=== PATIENT | male | born 1975 | race Caucasian/White ===

== ENCOUNTER 2019-07-24 15:47 | Emergency (ER) | payer OTHER ==
[2019-07-24 15:56] VITALS: BP 140/87; PULSE 74; TEMP 98.3; BMI 26.6
[2019-07-24] MEDS ORDERED: CLINDAMYCIN HCL 300 MG CAPSULE PO ONE (16:24)
[2019-07-24] MEDS ORDERED: CLINDAMYCIN HCL 150 MG CAPSULE (FP) ONE (16:26)
--- NOTE | 2019-07-24 16:50 | PDOC ---
Documentation entered by Oswaldo Posadas SCRIBE, acting as scribe for Aaron Yan MD. Aaron Yan MD: This documentation has been prepared by the [place] ascencio Elijah, SCRIBE, under my direction and personally reviewed by me in its entirety. I confirm that the documentation accurately reflects all work, treatment, procedures, and medical decision making performed by me. History of Present Illness - General Chief Complaint: Pain Stated Complaint: DENTAL PAIN RIGHT SIDE History Source: Patient Exam Limitations: No Limitations - History of Present Illness Initial Comments: 07/24/19 16:22 Patient is a 43 year old male with no reported past medical history who presents today with dental pain beginning x4 days ago. Patient reports that on Monday his symptoms onset and as they worsened he was seen x2 days later by Dr. Fany Baron for a Root Canal. At this time, the patient reports the pain as intolerable, starting in the jaw and radiating to the lutheran, and throbbing in nature. Allergies: NKA Dentist: Dr. Fany Baron Past History - Past Medical History Allergies/Adverse Reactions: Allergies Allergy/AdvReac Type Severity Reaction Status Date / Time No Known Allergies Allergy Unverified 07/24/19 15:55 Home Medications: Ambulatory Orders Clindamycin [Cleocin -] 300 mg PO Q6HPO #28 capsule 07/24/19 Oxycodone HCl/Acetaminophen [Percocet 10-325 mg Tablet] 1 each PO Q4H PRN #14 tablet MDD 6 07/24/19 Review of Systems - Review of Systems Comments:: 07/24/19 16:26 CONSTITUTIONAL: Absent: Fever, Chills, Diaphoresis, Generalized Weakness, Malaise, Loss of Appetite HEENT: Absent: Rhinorrhea, Nasal Congestion, Throat Pain, Throat Swelling, Difficulty Swallowing, Mouth Swelling, Ear Pain, Eye Pain, Visual Changes CARDIOVASCULAR: Absent: Chest Pain, Syncope, Palpitations, Irregular Heart Rate, Lightheadedness , Peripheral Edema RESPIRATORY: Absent: Cough, Shortness of Breath, SOB with Exertion, Orthopnea, Wheezing, Stridor, Hemoptysis GASTROINTESTINAL: Absent: Abdominal pain, Abdominal Distension, Nausea, Vomiting, Diarrhea, Constipation, Melena, Hematochezia GENITOURINARY: Absent: Dysuria, Frequency, Urgency, Hesitancy, Flank Pain, Genital Pain MUSCULOSKELETAL: Absent: Myalgia, Arthralgia, Joint Swelling, Back pain, Neck Pain SKIN: Absent: Rash, Itching, Pallor HEMEATOLOGIC/IMMUNOLOGIC: Absent: Easy Bleeding, Easy Bruising, Lymphadenopathy, Frequent infections ENDOCRINE: Absent: Unexplained Weight Gain, Unexplained Weight Loss, Heat Intolerance, Cold Intolerance NEUROLOGIC: Absent: Headache, Focal Weakness, Paresthesias, Vertigo, Lightheadedness, Unsteady Gait, Seizure, Mental Status Changes, Incontinence PSYCHIATRIC: Absent: Anxiety, Depression *Physical Exam - Vital Signs Last Vital Signs Temp Pulse Resp BP Pulse Ox 98.3 F 74 16 140/87 100 07/24/19 15:49 07/24/19 15:49 07/24/19 15:49 07/24/19 15:49 07/24/19 15:49 - Physical Exam 07/24/19 16:39 GENERAL: The patient is awake, alert, and fully oriented, in no acute distress. He states he has severe nerve pain in the right lower quadrant of his mouth where he had a root canal performed 2 days ago. HEAD: Normal with no signs of trauma. No facial swelling. EYES: Pupils equal, round and reactive to light, extraocular movements intact, sclera anicteric, conjunctiva clear. MOUTH: There is no trismus. The molar in the right lower quadrant has a temporary filling where the root canal was performed. That tooth has tap tenderness. There is no adjacent gum swelling or fluctuance. NECK: There is no adenopathy or neck swelling. The floor of the mouth is soft. EXTREMITIES: Normal range of motion, no edema. NEUROLOGICAL: Normal speech, normal gait. PSYCH: Normal mood, normal affect. SKIN: Warm, Dry, normal turgor, no rashes or lesions noted. ED Treatment Course - Medications Given in the ED: ED Medications Discontinued Medications Generic Name Dose Route Start Last Admin Trade Name Freq PRN Reason Stop Dose Admin Clindamycin HCl 300 mg 07/24/19 16:24 07/24/19 16:29 Cleocin - PO 07/24/19 16:25 300 mg ONCE ONE Administration Oxycodone/Acetaminophen 2 combo 07/24/19 16:24 07/24/19 16:29 Percocet 5/325 - PO 07/24/19 16:25 2 combo ONCE ONE Administration Medical Decision Making - Medical Decision Making 07/24/19 16:41 Patient is a 43-year-old man who developed pulpitis and required a root canal on his right lower quadrant second molar. The onset of pain was on July 20 and he had the root canal performed on July 22. He was placed on Augmentin 875 twice daily. He comes in now with intractable pain, not responsive to high- dose ibuprofen. On examination, there is no fluctuance or swelling of the gum. There is positive tap tenderness to the tooth. There is no trismus, and there is no facial swelling. There is no neck swelling. I discussed these findings with Dr. Fany Baron, his dentist. I was advised to switch his antibiotics to clindamycin, to increase his analgesia, and to refer him back to Dr. Baron for reevaluation in 48 hours on Monday. Patient low risk for opiates based on rapid questionnaire. He will be treated with clindamycin and Percocet with close follow-up. Discharge - Discharge Information Problems reviewed: Yes Clinical Impression/Diagnosis: Toothache Condition: Improved Disposition: HOME - Admission No - Additional Discharge Information Prescriptions: Clindamycin [Cleocin -] 300 mg PO Q6HPO #28 capsule Oxycodone HCl/Acetaminophen [Percocet 10-325 mg Tablet] 1 each PO Q4H PRN #14 tablet MDD 6 PRN Reason: Severe Pain Prescription Drug Monitoring Program (I-STOP) results: I-STOP reviewed and no issues identified - Follow up/Referral - Patient Discharge Instructions Patient Printed Discharge Instructions: DI for Prescription Opioid Use, DI for Dental Pain Additional Instructions: Today you were evaluated for a toothache in the area of your recent root canal. We are changing your antibiotics. Stop the Augmentin. Start clindamycin 300 mg every 6 hours. Take Percocet 10/325, 1 tablet every 4 hours as needed for severe pain. You may also take Naprosyn 500 mg twice daily. These 2 medications will not interfere with one another. Stop taking ibuprofen in excess of doses. The Percocet can be addictive, you should take the minimal necessary dose and stop as soon as the pain improves. Dr. Fany Baron is expecting to see you for follow-up on Monday, in 48 hours. Please call the office tomorrow to schedule your appointment time for Monday. Return to the emergency department for any severe or progressive symptoms such as fever, facial swelling, difficulty swallowing, or difficulty breathing. - Post Discharge Activity
== END 2019-07-24 16:55 | disposition home or self-care (01) ==
LOC: FER 15:47
DX: K08.89 Other specified disorders of teeth and supporting structures (principal)
CPT/HCPCS: 99281-25